=== PATIENT | male | born 1985 | race African-American/Black ===

== ENCOUNTER → 2018-02-19 | Outpatient (CLI) | payer BC ==
--- NOTE | 2018-02-19 13:33 | RADIOLOGY IMAGING REPORT ---
FACILITY: [facility] PATIENT NAME: Loy Benavides : 1985 MR: [id number] V: [id number] EXAM DATE: ORDERING PHYSICIAN: NITESH TOMLINSON TECHNOLOGIST: Location: [facility] Patient: Loy Benavides : 1985 Visit/Account:[id number] Date of Sevice: 02/19/2018 Exam type: FINGER RIGHT THUMB History: Interval right thumb over one week ago, swelling Comparison: None. Findings: Four views of the right thumb demonstrate no evidence of acute fracture or dislocation. There is sof t tissue swelling over the dorsal aspect of the right first MCP joint.. No evidence of soft tissue f oreign body IMPRESSION: 1. Soft tissue swelling over the dorsal aspect the right first MCP joint although no evidence of acu te fracture or dislocation Report Dictated By: Lacey Gonzalez MD at 02/19/2018 1:22 PM Report E-Signed By: Lacey Gonzalez MD at 02/19/2018 1:29 PM WSN:[email or web address]
== END ==
LOC: RAD 11:29
PROVIDERS: ATTEND Family Medicine
DX: M79.89 Other specified soft tissue disorders (principal); M79.644 Pain in right finger(s)